=== PATIENT | female | born 1985 | race African-American/Black ===

== ENCOUNTER 2024-05-17 09:05 | Emergency (ER) | payer MEDICAID ==
[~2024-05-17] VITALS: Ht 160 cm; Wt 89.4 kg
[2024-05-17 09:11] VITALS: BP 155/94; PULSE 80; RESP 16; TEMP 98.2; O2SAT 99
[2024-05-17] MEDS ORDERED: NAP5EC MT (09:49)
[2024-05-17 09:53] VITALS: TEMP 36.78072; O2SAT 99
== END 2024-05-17 10:52 | disposition home or self-care (01) ==
LOC: ER 09:55
DX: S93.401A Sprain of unspecified ligament of right ankle, initial encounter (principal); W18.30XA Fall on same level, unspecified, initial encounter; Y93.89 Activity, other specified; Y92.89 Other specified places as the place of occurrence of the external cause; Y99.8 Other external cause status
CPT/HCPCS: 73600; 99283; Z7610 ×3